=== PATIENT | female | born 1940 | race Caucasian/White ===

== ENCOUNTER → 2018-06-11 05:00 | Outpatient (REF) | payer MEDICARE, MEDICAID, SELFPAY ==
[2018-06-11 07:56] LABS: Anion Gap 2 (5-15); BUN 22 mg/dL (7-18); BUN/Creat Ratio 50.7 RATIO (10-20); Calcium,Total 8.9 mg/dL (8.5-10.1); Chloride 95 mmol/L (98-107); Creatinine, Serum 0.43 mg/dL (0.55-1.02); EST Glomerular Filtration Rate 150 mL/min (>60); Est Glom Filt Rate - Afr Amer 182 mL/min (>60); Glucose 85 mg/dL (74-106); Sodium Level 140 mmol/L (136-145)
--- OUTSIDE RECORDS SUMMARY | 2018-08-06 05:46 | XMS RPT_ITS ---
:1940 Author Organization OH[facility] Care Team Providers Name Role Phone Jon Martinez Attending Unavailable Jon Martinez Attending Unavailable Jon Martinez Attending Unavailable PROBLEMS PROBLEMS DATE TYPE CONDITION / CODE ATTENDING STATUS SOURCE 06/24/2018 Unknown I50.31 - Acute Spoljar[place], Active [place] diastolic [facility] (congestive) heart Hospital failure / Repository I50.31(ICD-10) 06/24/2018 Unknown R26.81 - Spoljaric, Active [place] Unsteadiness on [facility] feet / Hospital R26.81(ICD-10) Repository 06/24/2018 Unknown R27.9 - Spoljaric, Active [place] Unspecified lack [facility] of coordination / Hospital R27.9(ICD-10) Repository 06/24/2018 Unknown M62.81 - Muscle [place]jar[place], Active [place] weakness [facility] (generalized) / Hospital M62.81(ICD-10) Repository 06/24/2018 Unknown 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 LAB L501.1000 7-18 mg/dL High BUN 22 LAB L501.1100 0.55-1.02 mg/dL Low CREAT,SERUM 0.43 Result Comment: The validity of the calculated GFR AND GFRAA in patients over 70 years has not been determined. Clinical correlation is essential. LAB L501.1110 >60 mL/min Normal EST GFR 150 Result Comment: Non- GFR Calc LAB L501.1115 >60 mL/min Normal EST GFR - AA 182 Result Comment: GFR Calc LAB L501.1300 10-20 RATIO High BUN/CRE 50.7 LAB L501.2200 8.5-10.1 mg/dL CA Normal 8.9 LAB L501.5300 136-145 mmol/L NA Normal 140 LAB L501.5600 3.5-5.1 mmol/L K Normal 4.0 LAB L501.5900 98-107 mmol/L Low CL 95 LAB L501.6100 21.0-32.0 mmol/L High CO2 43.0 LAB L501.6200 5-15 Low GAP 2 Performed By: #### L500.2500 #### [facility] [address] [place], [address] BASIC METABOLIC Collected: 10/14/2017 Status: F Source: [place] PROFILE (BMP) 6:15 AM [facility] REPOSITORY Order Comment: ROOM 102-1 TYPE CODE TESTS RESULT OUT OF RANGE REFERENCE UNITS LAB L501.0100 74-106 mg/dL Low GLU 70 Result Comment: Please note revised GLUCOSE reference range effective 2017. LAB L501.1000 7-18 mg/dL Normal BUN 16 LAB L501.1100 0.55-1.02 mg/dL Low CREAT,SERUM 0.49 Result Comment: The validity of the calculated GFR AND GFRAA in patients over 70 years has not been determined. Clinical correlation is essential. LAB L501.1110 >60 mL/min Normal EST GFR 132 Result Comment: Non- GFR Calc LAB L501.1115 >60 mL/min Normal EST GFR - AA 160 Result Comment: GFR Calc LAB L501.1300 10-20 RATIO High BUN/CRE 32.9 LAB L501.2200 8.5-10.1 mg/dL CA Normal 9.0 LAB L501.5300 136-145 mmol/L NA Normal 139 LAB L501.5600 3.5-5.1 mmol/L K Normal 4.3 LAB L501.5900 98-107 mmol/L Low CL 96 LAB L501.6100 21.0-32.0 mmol/L High CO2 40.0 LAB L501.6200 5-15 Low GAP 3 Performed By: #### L500.2500 #### [facility] [address] [place], [place], [address] CBC-COMPLETE BLOOD CNT Collected: 10/14/2017 Status: F Source: [place] NO DIFF 6:15 AM [facility] REPOSITORY Order Comment: ROOM 102-1 TYPE CODE TESTS RESULT OUT OF RANGE REFERENCE UNITS LAB L100.1000 4.4-11.0 K/mm3 Normal WBC 4.7 LAB L100.1200 4.2-5.4 M/mm3 Low RBC 3.91 LAB L100.1300 12.0-15.0 g/dl Low HGB 11.2 LAB L100.1400 37-47 % Low HCT 36.7 LAB L100.1500 81-99 fL Normal MCV 93.9 LAB L100.1600 27.0-32.0 pg Normal MCH 28.6 LAB L100.1700 32-36 g/gl Low MCHC 30.5 LAB L100.1810 11.6-14.6 % High RDW CV 17.1 LAB L100.1820 35.1-43.9 fl High RDW SD 58.5 LAB L100.1900 150-450 K/mm3 Normal PLT 222 LAB L100.2000 6.2-12.0 fl Normal MPV 11.1 Performed By: #### L100.0500 #### [facility] [address] [place], [place], [address] CBC-COMPLETE BLOOD CNT Collected: 07/15/2017 Status: F Source: [place] NO DIFF 7:31 AM [facility] REPOSITORY TYPE CODE TESTS RESULT OUT OF RANGE REFERENCE UNITS LAB L100.1000 4.4-11.0 K/mm3 Normal WBC 6.5 LAB L100.1200 4.2-5.4 M/mm3 Low RBC 4.02 LAB L100.1300 12.0-15.0 g/dl Normal HGB 12.1 LAB L100.1400 37-47 % Normal HCT 38.7 LAB L100.1500 81-99 fL Normal MCV 96.3 LAB L100.1600 27.0-32.0 pg Normal MCH 30.1 LAB L100.1700 32-36 g/gl Low MCHC 31.3 LAB L100.1810 11.6-14.6 % High RDW CV 14.8 LAB L100.1820 35.1-43.9 fl High RDW SD 49.1 LAB L100.1900 150-450 K/mm3 Normal PLT 225 LAB L100.2000 6.2-12.0 fl Normal MPV 11.3 Performed By: #### L100.0500 #### [facility] [address] [place], [address] HEMOGLOBIN A1C Collected: 07/15/2017 Status: F Source: [place] 7:31 AM [facility] REPOSITORY TYPE CODE TESTS RESULT OUT OF RANGE REFERENCE UNITS LAB L501.9985 4.2-6.3 % Normal HGB A1C 5.3 Performed By: #### L501.9985 #### [facility] [address] [place], [address] COMPREHENSIVE METABOLIC Collected: 07/15/2017 Status: F Source: [facility] 7:31 AM [facility] REPOSITORY TYPE CODE TESTS RESULT OUT OF RANGE REFERENCE UNITS LAB L501.0100 70-110 mg/dL Normal GLU 84 LAB L501.1000 7-18 mg/dL High BUN 21 LAB L501.1100 0.55-1.02 mg/dL Low 0.53 CREAT,SERUM Result Comment: The validity of the calculated GFR AND GFRAA in patients over 70 years has not been determined. Clinical correlation is essential. LAB L501.1110 >60 mL/min Normal EST GFR 120 Result Comment: Non- GFR Calc LAB L501.1115 >60 mL/min Normal EST GFR - AA 146 Result Comment: GFR Calc LAB L501.1300 10-20 RATIO High BUN/CRE 39.8 LAB L501.1500 6.4-8.2 g/dL Low T PROT 5.9 LAB L501.1800 3.4-5.0 g/dL Low ALB 3.0 Result Comment: Please note revised Albumin AND Globulin reference range effective 2017. LAB L501.1950 2.2-4.2 g/dL Normal GLOB 2.9 LAB L501.2000 0.9-2.4 RATIO Normal A/G 1.0 LAB L501.2200 8.5-10.1 mg/dL Normal CA 8.7 LAB L501.4100 15-37 U/L Normal AST 27 LAB L501.4305 45-117 U/L Normal ALK P 117 LAB L501.4405 12-78 U/L Normal ALT 27 LAB L501.4600 0.20-1.00 mg/dL Normal T BILI 0.30 LAB L501.5300 136-145 mmol/L Normal NA 140 LAB L501.5600 3.5-5.1 mmol/L Normal K 4.5 LAB L501.5900 98-107 mmol/L Normal CL 101 LAB L501.6100 21.0-32.0 mmol/L High CO2 33.0 LAB L501.6200 5-15 Normal GAP 6 Performed By: #### L500.4050, L501.9520 #### [facility] [address] [place], [place], [id number] THYROID STIM HORMONE Collected: 07/15/2017 Status: F Source: [place] (TSH) 7:31 AM [facility] REPOSITORY TYPE CODE TESTS RESULT OUT OF RANGE REFERENCE UNITS LAB L501.9520 0.358-3.74 uIU/mL High TSH 6.40 Performed By: #### L500.4050, L501.9520 #### [facility] [address] [place], [place], [address] VITAMIN D,25 HYDROXY Collected: 07/15/2017 Status: F Source: [place] 7:31 AM [facility] REPOSITORY TYPE CODE TESTS RESULT OUT OF RANGE REFERENCE UNITS LAB L506.1000 ng/mL Normal Vitamin D 44.8 25-OH Result Comment: Vitamin D 25(OH) Status Range Deficiency <20 ng/mL (50nmol/L) Insuffciency 20 - 30 ng/mL (50 - 75 nmol/L) Sufficiency 30 - 100 ng/mL (75 - 250 nmol/L) Toxicity >100 ng/mL (>250 nmol/L) Performed By: #### L506.1000, L509.6000 #### [facility] [address] [place], [place], [address] CORTISOL SERUM Collected: 07/15/2017 Status: F Source: [place] 7:31 AM [facility] REPOSITORY TYPE CODE TESTS RESULT OUT OF RANGE REFERENCE UNITS LAB L509.6000 3.09-22.40 ug/dL Normal CORTISOL 20.80 Result Comment: Adult (AM) 4.30 - 22.40 ug/dL Adult (PM) 3.09 - 16.66 ug/dL Performed By: #### L506.1000, L509.6000 #### [facility] [address] [place], [address] ALLERGIES ALLERGIES No Allergies Records FoundENCOUNTERS ENCOUNTERS ADMIT/DISCHARGE ACCOUNT ADMITTING ENCOUNTER LOCATION SOURCE NUMBER CLASS 06/11/2018 [id number] Ambulatory [place] 6 [facility] ing:OLS.ACW30 Repository 0 10/14/2017 [id number] Ambulatory [place] 0 [facility] ing:OLS.ACW20 Repository 0 07/15/2017 [id number] Ambulatory [place] 9 [facility] ing:OLS.ACW10 Repository 0 PAYERS PAYERS ENCOUNTER GUARANTOR PAYER SUBSCRIBER SOURCE 06/11/2018 Jennifer [id number] Primary Jennifer [place] Insurance:MEDICAIDPo ttleD[id number] [id number] [place]ository [place] [address]Dmu: [phone]) Date:2018-06-11 [phone] (HP) 06/11/2018 Secondary Jennifer [place] Insurance:MEDICARE ZittleDOB: Community PART A [facility] [id number] [facility] Number: Repository [id number] Date:2018-06-11 06/11/2018 Tertiary NOT GIVENUNK [place] Insurance:SELF PAY [facility] Number: Effective Repository Date:2018-06-11 10/14/2017 Primary NOT GIVENUNK [place] Insurance:SELF PAY [facility] Number: Effective Repository Date:2017-10-14 07/15/2017 Primary NOT GIVENUNK [place] Insurance:SELF PAY [facility] Number: Effective Repository Date:2017-07-15
== END ==
LOC: OLS.ACW300 05:00
PROVIDERS: Visit Provider Internal Medicine
DX: I50.31 Acute diastolic (congestive) heart failure (principal); M62.81 Muscle weakness (generalized); R26.81 Unsteadiness on feet; R27.9 Unspecified lack of coordination; Z86.73 Personal history of transient ischemic attack (TIA), and cerebral infarction without residual deficits
CPT/HCPCS: 36415; 80048